=== PATIENT | male | born 1995 | race Caucasian/White ===

== ENCOUNTER 2019-05-27 12:04 | Emergency (ER) | payer MEDICAID, SELFPAY ==
[2019-05-27 12:05] VITALS: BP 133/71; PULSE 85; RESP 16; TEMP 36.6; O2SAT 98; BMI 18.6
--- NOTE | 2019-05-27 12:26 | ED.VIS.GEN ---
History of Present Illness Chief Complaint: Itching Informant: Patient Narrative: Patient presents with a right leg, bilateral arm itchy rash that has been ongoing for a few months he did have a tick bite on the left lower extremity about 6 months ago and had a wound he has been picking at it and it has been healing very slowly. He has no chest pain no vision changes he has no joint aches fevers or chills. The rash on the arms has been the same as the rash on his leg, these have been ongoing for a few months. Past Medical History - Allergies and Home Meds Allergies/Adverse Reactions: Allergies Sulfa (Sulfonamide Antibiotics) Allergy (Verified 05/27/19 12:07) Isai Primary Care Physician: Lalit Whitman [Primary Care Provider] - Past Medical History: - - Asthma Smoking Status: Current every day smoker Review of Systems General: Denies: Fever Eyes: Denies: Visual changes - bilaterally Cardiovascular: Denies: Chest pain, Palpitations Respiratory: Denies: Dyspnea, Cough Gastrointestinal: Denies: Nausea, Vomiting Musculoskeletal: Denies: Myalgias, Arthralgias Skin: Reports: Rash Neurological: Denies: Weakness Allergy: Denies: Uticaria, Swelling of the mouth, Swelling of the tongue Physical Exam Vital Signs/Narrative: Vital Signs Temp Pulse Resp BP Pulse Ox 05/27/19 12:05 98 F 85 16 133/71 H 98 General: Well nourished, Well developed Eyes: Perrl, EOMI. Negative for: Pale conjunctiva ENT: Moist mucous membranes, No rhinorrhea Neck: Supple Cardiovascular: Regular rate, Regular rhythm Respiratory: No distress, CTA bilaterally Abdomen: Soft, Nontender Back: Nontender Extremities: Nontender, No edema, - - No arthralgias no effusions in any of his joints Skin: - - She has an eczematous rash on bilateral upper extremities as well as the right lower extremity this is not over the joints. The rash is blanching, there is no signs of cellulitis. Diagnostic/Tx/Re-eval - Medical Decision Making Patient likely has eczema, I will treat as such. There are no systemic signs. ED Disposition - Plan for ED Patient: Disposition: Home or Assisted Living Diagnosis: Eczema Instructions: Atopic Dermatitis (Eczema) Prescriptions: Triamcinolone 0.1% Cream [Kenalog] 1 applic TOPICAL BID #1 tube Prescription Printed hydrOXYzine pamoate capsule [Vistaril] 50 mg PO TID PRN PRN #30 cap PRN Reason: Anxiety Prescription Printed Referrals: Lalit Whitman [Primary Care Provider] -
== END 2019-05-27 12:55 | disposition home or self-care (01) ==
LOC: ED 12:37
PROVIDERS: Emergency Provider Emergency Medicine; PCP Family Medicine
DX: L30.9 Dermatitis, unspecified (principal); J45.909 Unspecified asthma, uncomplicated; F17.200 Nicotine dependence, unspecified, uncomplicated
CPT/HCPCS: 99282